=== PATIENT | male | born 1945 ===

== ENCOUNTER 2017-10-01 01:34 | Inpatient (IN) | payer MEDICARE, MEDICAID ==
[2017-10-01 01:43] VITALS: BMI 28.0
--- NOTE | 2017-10-01 02:08 | EDPD ---
HPI Stroke - General Time Seen by Provider: 10/01/17 01:44 Chief Complaint: Fever Historian: Patient, Family - History of Present Illness Narrative History of Present Illness (Free Text): 10/01/17 02:11 72 year old male, with past medical history of hypertension, CVA, cerebral hemorrhage, coronary thrombosis and A-fib, presents to the Emergency department complaining of slurred speech, dizziness, and worsening gait disturbance since approximately 4 hours prior to arrival. Patient recently arrived from [facility]. 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 Patient informs subjective warmth and informs chills however currently denies any chest pain, shortness of breath, nausea, vomiting, diarrhea , abdominal pain, headache, incontinence, or any other complaints. Onset:: Hours Timing: Currently Symptomatic Context: Home Associated Symptoms: Dysarthria - Location Location: Speech - Pain Assessment/Levels Maximum Severity: Mild rTPA Inclusion/Exclusion - Refusal of Treatment Patient Refused Treatment: No - Inclusion Criteria for Altepase Patient is 18 years or Older: Yes The Clinical Diagnosis of Ischemic Stroke That is Causing a Potentially Disabling Neurological Deficit: No Time of Onset is Well Established to be Less Than 270 Minute Before Treatment Would Begin: Yes Risk/Benefit Discussed With Patient/Family Member Present: Yes - Exclusion Criteria for Altepase Uncontrolled Hypertension at Time of Treatment (Systolic BP above 185 or Diastolic BP above 110 mmHg): No History of: Intracranial hemorrhage Active Internal Bleeding: No Known Bleeding Diathesis Including but Not Limited to: Platelets Below 100,000/ mm,PTT Above 40 sec After Heparin Use, Current Use of Oral Anitcoagulant With INR Greater Than 1.7 or PT Greater Than 15 secs: No Evidence of an Intracranial Hemorrhage: No Evidence of Major Acute Infarct With Signs Greater Than 1/3 MCA Territory: No Suspicion of Subarachnoid Hemorrhage on Pretreatment Evaluation Even if CT Head Negative For Hemorrhage: No - Warning to TPA With Conditions Following Conditions Weighed Against Anticipated Benefit: Yes Condition: Stroke Serevity Too Mild Additional Condition (For 3-4.5 Hour Window): Any anticoagulant use prior to admission (Even if INR less than 1.7) Past Medical History - Provider Review Nursing Documentation Reviewed: Yes Family/Social History - Family/Social History Family History: Non-Contributory Allergies/Home Meds Allergies/Adverse Reactions: Allergies No Known Allergies Allergy (Verified 10/01/17 01:43) Home Medications: Home Meds Medication Instructions Recorded Confirmed Acetaminophen [Tylenol] 500 mg PO DAILY 10/01/17 10/01/17 Carvedilol [Coreg] 12.5 mg PO BID 10/01/17 10/01/17 Hydrochlorothiazide [Microzide] 50 mg PO DAILY 10/01/17 10/01/17 Sertraline [Zoloft] 50 mg PO DAILY 10/01/17 10/01/17 amLODIPine [Norvasc] 10 mg PO DAILY 10/01/17 10/01/17 hydrALAZINE [Apresoline] 50 mg PO TID 10/01/17 10/01/17 levETIRAcetam [Keppra] 1,000 mg PO BID 10/01/17 10/01/17 Review of Systems - Review of Systems Constitutional: Normal Eyes: Normal ENT: Normal Respiratory: Normal Cardiovascular: Normal Gastrointestinal: Normal Genitourinary Male: Normal Musculoskeletal: Normal Skin: Normal Neurological: Dizziness, Speech Changes Endocrine: Normal Hemo/Lymphatic: Normal Psychiatric: Normal ED Stroke Physical Exam Vital Signs Reviewed: Yes Vital Signs Temp Pulse Resp BP Pulse Ox 10/01/17 01:43 98.1 F 93 H 18 138/94 H 93 L Temperature: Afebrile Blood Pressure: Normal Pulse: Regular Respiratory Rate: Normal Appearance: Positive for: Well-Appearing, Non-Toxic, Comfortable Pain Distress: None Mental Status: Positive for: Alert and Oriented X 3 - Systems Exam Head: Present: Atraumatic, Normocephalic Pupils: Present: PERRL Extroacular Muscles: Present: EOMI Conjunctiva: Present: Normal Ears: Present: NORMAL TM Mouth: Present: Moist Mucous Membranes Pharnyx: Present: Normal Nose (External): Present: Atraumatic Nose (Internal): Present: Normal Inspection Neck: Present: Normal Range of Motion Respiratory/Chest: Present: Clear to Auscultation, Good Air Exchange. No: Respiratory Distress, Accessory Muscle Use Cardiovascular: Present: Regular Rate and Rhythm, Normal S1, S2. No: Murmurs Abdomen: Present: Normal Bowel Sounds. No: Tenderness, Distention, Peritoneal Signs Upper Extremity: Present: Normal Inspection. No: Cyanosis, Edema Lower Extremity: Present: Normal Inspection, Normal ROM. No: Edema Neurologic: Present: GCS=15, CN II-XII Intact, Motor Func Grossly Intact, Normal Sensory Function Skin: Present: Warm, Dry, Normal Color. No: Rashes Psychiatric: Present: Alert, Oriented x 3, Normal Insight, Normal Concentration Medical Decision Making ED Course and Treatment: 10/01/17 02:07 Impression: 72 year old male presents to the Emergency department Differential Diagnosis included but are not limited to: CVA Plan: -- Blood Type and Screen -- CT of Head and Neck -- Labs -- Chest X-ray -- IV fluids -- EKG -- Reassess and disposition Progress Notes: 10/01/17 02:07 CODE STROKE ACTIVATED. 10/01/17 02:07 Dr. Page has been page, waiting on response. 10/01/17 02:46 Third call placed to Dr. Page. Still waiting on response. 10/01/17 02:20 CT of Head reviewed by radiologist, shows: FINDINGS: There is atrophy. There is chronic small vessel ischemic disease. On series 4, images 39- 41, there are faint hypoattenuating areas in the white matter of the left frontal lobe that may represent prominent areas of chronic small vessel ischemic disease however early developing edema secondary to acute infarct would be possible. Recommend sending prior studies if they exist. Recommend correlation with the patient's symptoms. MRI could be performed if indicated. There is encephalomalacia in the left cerebellum and medial left occipital lobe consistent with prior infarcts. There is no hemorrhage. No significant fluid in the sinuses. Decreased aeration and of the left mastoid air cells. The osseous structures are normal. 10/01/17 02:08 EKG:Ordered, reviewed, and independently interpreted the EKG. Rate : 92 BPM Rhythm : A-fib. Interpretation : LAD, non-specific ST/T wave changes. 10/01/17 03:04 Chest X-ray reviewed, shows no acute processes. 10/01/17 03:39 Dr. Page has been paged again. Still no response. 10/01/17 03:[address] Newell, who is aware and agrees with Emergency department management plan. Accepts patient under his service and as per request will page Dr. Blair. 10/01/17 04:[address] Page, who is aware and agrees with Emergency department management plan. Recommends continuance of anti-coagulant and admission to Telemetry followed by MRI in the morning. - Critical Care Critical Care Minutes: 30 minutes - RAD Interpretation French Weaver: ED Physician, Radiologist - EKG Interpretation Interpreted by ED Physician: Yes Type: 12 lead EKG - Scribe Statement The provider has reviewed the documentation as recorded by the Scribe Alejandro Paz. All medical record entries made by the Scribe were at my direction and personally dictated by me. I have reviewed the chart and agree that the record accurately reflects my personal performance of the history, physical exam, medical decision making, and the department course for this patient. I have also personally directed, reviewed, and agree with the discharge instructions and disposition. NIHSS Scale ([place]) Time Performed: 02:07 - How Severe is the Stoke Baseline Level of Consciousness: 0=Alert LOC to Questions: 0=Both comments correct LOC to commands: 0=Obeys both correctly Best Gaze: 0=Normal Visual: 0=No visual loss Facial: 0=Normal Motor Arm - Left: 0=No drift Motor Arm - Right: 0=No drift Motor Leg - Left: 0=No drift Motor Leg - Right: 0=No drift Limb Ataxia: 0=Absent Sensory: 0=Normal Best Language: 0=No aphasia Dysarthia: 1=Mild to moderate slurring Extinction & Inattention (Neglect): 0=Normal, no object Score: 1 Risk Level: Minor Stroke Risk Disposition/Present on Arrival - Present on Arrival Any Indicators Present on Arrival: No History of DVT/PE: Yes History of Uncontrolled Diabetes: No Urinary Catheter: No History of Decub. Ulcer: No History Surgical Site Infection Following: None - Disposition Have Diagnosis and Disposition been Completed?: Yes Diagnosis: CVA (cerebral vascular accident), Vertebral artery occlusion Disposition: HOSPITALIZED Disposition Time: 04:20 Patient Plan: Admission Patient Problems: Current Active Problems Problem Status Onset CVA (cerebral vascular accident) Acute Vertebral artery occlusion Acute Condition: STABLE
[2017-10-01 02:20] LABS: BASO # 0.03 K/mm3 (0.0-2.0); BASO % 0.3 % (0.0-3.0); EOS # 0.2 (0.0-0.7); EOS % 1.5 % (1.5-5.0); GRAN # 6.73 (1.4-6.5); GRAN % 61.5 % (50.0-68.0); LYMPH % 27.7 % (22.0-35.0); MEAN CELL VOLUME 91.6 fl (80.0-105.0); MEAN CORPUSCULAR HEMOGLOBIN 32.2 pg (25.0-35.0); MEAN CORPUSCULAR HGB CONC 35.1 g/dl (31.0-37.0); MEAN PLATELET VOLUME 9.9 fl (7.0-11.0); RBC 4.66 10^6/uL (3.5-6.1); RED CELL DISTRIBUTION WIDTH 13.3 % (11.5-14.5); WHITE BLOOD COUNT 10.9 10^3/ul (4.5-11.0)
[2017-10-01] MEDS ORDERED: Iohexol 350 MG/100 ML VIAL ONE (02:20)
[2017-10-01 02:29] LABS: ALB/GLOB RATIO 1.1 (1.1-1.8); ALBUMIN 3.8 g/dL (3.0-4.8); ALT/SGPT 18 U/L (7-56); AST/SGOT 23 U/L (17-59); BLOOD UREA NITROGEN 27 mg/dL (7-21); CALCIUM 8.8 mg/dL (8.4-10.5); GFR AFRICAN-AMERICAN > 60; GFR NON-AFRICAN AMERICAN > 60; HDL CHOLESTEROL 30 mg/dL (29-60)
[2017-10-01 02:40] LABS: LDL CHOLESTEROL 82 mg/dL (0-129)
--- NOTE | 2017-10-01 02:40 | CT ---
EXAM: CT Head Without Intravenous Contrast EXAM DATE/TIME: 10/01/2017 2:10 AM CLINICAL HISTORY: 72 years old, male; Signs and symptoms; Altered mental status/memory loss; Additional info: Code stroke TECHNIQUE: Axial computed tomography images of the head/brain without intravenous contrast. All CT scans at this facility use one or more dose reduction techniques, viz.: automated exposure control; ma/kV adjustment per patient size (including targeted exams where dose is matched to indication; i.e. head); or iterative reconstruction technique. Coronal and sagittal reformatted images were created and reviewed. COMPARISON: No relevant prior studies available. FINDINGS: There is atrophy. There is chronic small vessel ischemic disease. On series 4, images 39- 41, there are faint hypoattenuating areas in the white matter of the left frontal lobe that may represent prominent areas of chronic small vessel ischemic disease however early developing edema secondary to acute infarct would be possible. Recommend sending prior studies if they exist. Recommend correlation with the patient's symptoms. MRI could be performed if indicated. There is encephalomalacia in the left cerebellum and medial left occipital lobe consistent with prior infarcts. There is no hemorrhage. No significant fluid in the sinuses. Decreased aeration and of the left mastoid air cells. The osseous structures are normal. IMPRESSION: Encephalomalacia left cerebellum and medial left occipital lobe as with prior infarcts. Faint hypoattenuating areas in the white matter of the left frontal lobe that may represent prominent areas of chronic small vessel ischemic disease however early developing edema secondary to acute infarct would be possible. Recommend sending prior studies if they exist. Recommend correlation with the patient's symptoms. MRI could be performed if indicated.
[2017-10-01 02:43] LABS: TROPONIN I < 0.01 ng/mL
[2017-10-01 02:44] LABS: INR 2.68 (0.93-1.08); PARTIAL THROMBOPLASTIN TIME 39.1 Seconds (25.1-36.5); PROTHROMBIN TIME 31.2 SECONDS (9.4-12.5)
[2017-10-01] MEDS ORDERED: Potassium Chloride 20 mEq ER Tab PO STA (03:04)
[2017-10-01] MEDS: Sodium Chloride 0.9% 1,000 ML IV SCH ×3 (03:05→14:24)
--- NOTE | 2017-10-01 03:20 | CT ---
EXAM: CT Angiography Head With Intravenous Contrast CLINICAL HISTORY: 72 years old, male; Signs and symptoms; Speech disturbance; Type not specified; Additional info: Dizzy/dysarthria/hx. Cva/cerebral hemorhage TECHNIQUE: Axial computed tomographic angiography images of the head with intravenous contrast using CT angiography protocol. All CT scans at this facility use one or more dose reduction techniques, viz.: automated exposure control; ma/kV adjustment per patient size (including targeted exams where dose is matched to indication; i.e. head); or iterative reconstruction technique. MIP reconstructed images were created and reviewed. Coronal and sagittal reformatted images were created and reviewed. CONTRAST: 50 mL of OMNI 350 administered intravenously. COMPARISON: No relevant prior studies available. FINDINGS: The basilar artery is patent. The posterior cerebral arteries are patent. Calcifications are present in the internal carotid arteries without significant stenosis or occlusion. The anterior and middle cerebral arteries are patent. IMPRESSION: No acute vascular findings. EXAM: CT Angiography Neck With Intravenous Contrast EXAM DATE/TIME: 10/01/2017 2:10 AM CLINICAL HISTORY: 72 years old, male; Signs and symptoms; Speech disturbance; Type not specified; Additional info: Dizzy/dysarthria/hx. Cva/cerebral hemorhage TECHNIQUE: Axial computed tomographic angiography images of the neck with intravenous contrast using CT angiography protocol. All CT scans at this facility use one or more dose reduction techniques, viz.: automated exposure control; ma/kV adjustment per patient size (including targeted exams where dose is matched to indication; i.e. head); or iterative reconstruction technique. MIP reconstructed images were created and reviewed. Coronal and sagittal reformatted images were created and reviewed. CONTRAST: 50 mL of OMNI 350 administered intravenously. COMPARISON: CT - HEAD W/O (CODE STROKE) 2017-10-01 02:16 FINDINGS: There is calcification at the origin of the right vertebral artery. There is lack of contrast opacification of the entire right vertebral artery up to the level of the occipital condyles. The distal right vertebral artery is opacified to it's convergence with the left vertebral artery. The left vertebral artery is patent without stenosis or occlusion. The common carotid arteries are patent bilaterally without significant stenosis or occlusion. The visualized portions of the internal carotid arteries are patent without stenosis or occlusion. Small scattered calcifications are noted throughout the carotid arteries. Calcifications are present within the brachiocephalic artery bifurcation. IMPRESSION: Occlusion of the proximal-mid right vertebral artery with reconstitution distally at the level of the occipital condyles.
--- NOTE | 2017-10-01 08:32 | RAD ---
HISTORY: Code Stroke COMPARISON: No prior. FINDINGS: LUNGS: No active pulmonary disease. PLEURA: No significant pleural effusion identified, no pneumothorax apparent. CARDIOVASCULAR: Normal. OSSEOUS STRUCTURES: No significant abnormalities. VISUALIZED UPPER ABDOMEN: Normal. OTHER FINDINGS: None. IMPRESSION: No active disease.
--- NOTE | 2017-10-01 12:32 | MRI ---
PROCEDURE: MRI BRAIN WITHOUT CONTRAST HISTORY: r/o cva COMPARISON: None. TECHNIQUE: Multiplanar, multisequence MR images of the brain were obtained without intravenous contrast enhancement. FINDINGS: HEMORRHAGE: There is hemosiderin deposition in the left occipital lobe consistent with an old hemorrhagic infarct. DWI: No evidence of an acute or early subacute infarction. BRAIN PARENCHYMA: No mass effect or edema. Severe chronic microvascular changes are seen in the periventricular white matter. There is focal cystic encephalomalacia in the left occipital lobe. Old infarcts are also seen in the left cerebellar hemisphere. VENTRICLES: Unremarkable. No hydrocephalus. CRANIUM: Unremarkable. ORBITS: Grossly unremarkable. PARANASAL SINUSES/MASTOIDS: Clear VASCULAR SYSTEM: Skull base flow voids intact. OTHER FINDINGS: None. IMPRESSION: No acute intracranial findings. Chronic microvascular changes and chronic hemorrhagic infarct of the left occipital lobe
--- NOTE | 2017-10-01 12:34 | MRI ---
PROCEDURE: Magnetic Resonance Angiography Brain HISTORY: r/o cva COMPARISON: None available. TECHNIQUE: 3D time of flight MR angiography of the intracranial arteries was performed. Rotating maximum intensity projection images were generated. FINDINGS: INTERNAL CAROTID ARTERIES: Unremarkable. The skull base, petrous, cavernous and supraclinoid segments are bilaterally widely patient. ANTERIOR CEREBRAL ARTERIES: Unremarkable. A1 and A2 segments are widely patent. Smaller distal branches unremarkable, as visualized. MIDDLE CEREBRAL ARTERIES: Unremarkable. M1 and M2 segments are widely patent. Perisylvian branches grossly symmetric. POSTERIOR CIRCULATION: Basilar Artery: Unremarkable. Distal Vertebral Arteries: Unremarkable. Posterior Cerebral Arteries: Unremarkable. Posterior Inferior Cerebellar Arteries: Unremarkable. ANEURYSM/ VASCULAR MALFORMATIONS: None. OTHER FINDINGS: None. IMPRESSION: Unremarkable MR angiography of the brain.
--- NOTE | 2017-10-01 13:20 | CP.PCM.CON ---
History of Present Illness - History of Present Illness History of Present Illness: 72 yr old male who has pmh of HTN, old stroke, pmh of cerebral hemorrhage, who presented last night with 5 hour onset of dysarthria, presents to the Emergency department complaining of slurred speech, dizziness, and worsening gait disturbance. PER CHART: Patient recently arrived from [facility]. 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 PMH/PSH: afib on coumadin, prior hemorrhage and stroke, htn, FH/SH: lived in for 6 years, now lives in [facility]. No tobacco, no etoh, All: nkda on exam: Normal neurological examination, Past Patient History - Past Social History Smoking Status: Never Smoked - CARDIAC Hx Cardiac Disorders: Yes Hx Hypertension: Yes - PULMONARY Hx Respiratory Disorders: No - NEUROLOGICAL Hx Neurological Disorder: Yes HX Cerebrovascular Accident: Yes - HEENT Hx HEENT Problems: No - RENAL Hx Chronic Kidney Disease: No - ENDOCRINE/METABOLIC Hx Endocrine Disorders: No - HEMATOLOGICAL/ONCOLOGICAL Hx Blood Disorders: No - INTEGUMENTARY Hx Dermatological Problems: No - MUSCULOSKELETAL/RHEUMATOLOGICAL Hx Musculoskeletal Disorders: No Hx Falls: No - GASTROINTESTINAL Hx Gastrointestinal Disorders: No - GENITOURINARY/GYNECOLOGICAL Hx Genitourinary Disorders: No - PSYCHIATRIC Hx Psychophysiologic Disorder: No Hx Substance Use: No - SURGICAL HISTORY Hx Surgeries: Yes Other/Comment: left knee sx Meds Allergies/Adverse Reactions: Allergies Allergy/AdvReac Type Severity Reaction Status Date / Time No Known Allergies Allergy Verified 10/01/17 01:43 - Medications Medications: Current Medications Aspirin (Aspirin Chewable) 81 mg PO DAILY [facility] Last Admin: 10/01/17 09:38 Dose: 81 mg Sodium Chloride (Sodium Chloride 0.9%) 1,000 mls @ 100 mls/hr IV .Q10H [facility] Last Admin: 10/01/17 12:38 Dose: Not Given Results - Vital Signs Recent Vital Signs: Last Vital Signs Temp 98.0 F 10/01/17 06:19 Pulse 82 10/01/17 10:00 Resp 20 10/01/17 06:19 BP 131/88 10/01/17 06:19 Pulse Ox 96 10/01/17 05:05 - Labs Result Diagrams: 10/02/17 05:30 05/07/18 05:30 Labs: Laboratory Results - last 24 hr 10/01/17 10/01/17 10/01/17 06:30 06:30 06:30 POC Glucose (mg/dL) Vitamin B12 249 25-OH Vitamin D Total 15.5 L Digoxin < 0.4 L Blood Type Blood Type Confirm Antibody Screen BBK History Checked 10/01/17 10/01/17 10/01/17 08:20 08:49 12:49 POC Glucose (mg/dL) 144 H Vitamin B12 25-OH Vitamin D Total Digoxin Blood Type O POSITIVE Blood Type Confirm O POSITIVE Antibody Screen Negative BBK History Checked No verified bt - Imaging and Cardiology CT scan - head Status: Image reviewed by me, Report reviewed by me (CT HEAD SHOWS lt. cerebellar stroke, lt.occipital stroke old,) Additional comment: CTA head : shows proximal to mid right vertebral arteray with reconstitution at distal condyles. Assessment & Plan - Assessment and Plan (Free Text) Assessment: 72 yr old male with TIA, who was not candidate for TPA due to time of onset and partial resolution of symptoms. I ordered MRI Brain and it is normal at this time with no stroke. Plan: 1. Continue stroke workup. 2. ECHO 3. Restart coumadin for afib, 4, Lipid profile thank you dr. saleh
[2017-10-01] MEDS ORDERED: Nitroglycerin 2% Ointment Foilpak UD TOP PRN (13:42)
[2017-10-01] MEDS ORDERED: Potassium Chloride 20 mEq ER Tab PO ONE (13:43)
[2017-10-01] MEDS ORDERED: Ergocalciferol 50,000 Intl Units Cap PO SCH (13:45)
[2017-10-01] MEDS ORDERED: Enoxaparin 40 mg Syringe SC STA (14:09)
--- NOTE | 2017-10-01 15:14 | CARD ---
APPROVED REPORT EKG Measurement Heart [id number] <Conclusion> Atrial fibrillation Left axis deviation Abnormal ECG
--- NOTE | 2017-10-01 15:15 | CARD ---
APPROVED REPORT EKG Measurement Heart [id number] <Conclusion> Atrial fibrillation Left axis deviation Abnormal ECG
--- NOTE | 2017-10-01 22:58 | HP ---
DATE OF EXAM: 10/01/2017 HISTORY OF PRESENT ILLNESS: This is a 72-year-old male who was admitted to [facility]. He presented to the [facility] ER with complaint of dysarthria, slurred speech, dizziness, and worsening gait including imbalance with ambulation, which occurred approximately 4 hours prior to the arrival to the [facility] ER. There he was evaluated and felt to have evidence of possible stroke and is admitted for further evaluation of the above. PAST MEDICAL HISTORY: Extensive and includes chronic hypertension, old CVA, history of seizure syndrome, history of atherosclerotic heart disease with old myocardial infarction and chronic atrial fibrillation. Of note, the patient was on Coumadin anticoagulants for knowledge of atrial fibrillation in his past and in the emergency room, he was noted to have slurred speech and was complaining of dizziness. The patient has been seen by Neurology and is not felt to be an antithrombotic candidate, and review of current MRIs and CT shows no evidence of acute stroke or intracranial hemorrhage. ALLERGIES: THE PATIENT DENIES ANY ALLERGIES TO MEDICATION. FAMILY HISTORY: Noncontributory. OUTPATIENT MEDICATIONS: Included hydrochlorothiazide, Zoloft, heparin, Coumadin , Norvasc, hydralazine, and Coreg. SOCIAL HISTORY: He states he is a current nondrinker, nonsmoker. REVIEW OF SYSTEMS: CONSTITUTIONAL: Denied fever or chills. HEAD: Denied headache or recent seizure. EYES: No change in visual acuity. EARS: No hearing loss. THROAT: No swallowing difficulty. NECK: No stiffness. CARDIOVASCULAR: History of hypertension, atherosclerotic heart disease, old myocardial infarction, and AFib. PULMONARY: No cough. No hemoptysis. GI: No hematemesis. No melena. : No dysuria. No hematuria. SKIN: Without rash. VASCULAR: No claudication. PSYCHOLOGICAL: History of depression. NEUROLOGICAL: History of old stroke and seizure. PHYSICAL EXAMINATION; VITAL SIGNS: Temperature 98.1, respirations 18, pulse 93, blood pressure 138/94. HEENT: Head: Normocephalic, atraumatic. Eyes: No icterus. Ears: Clear. Throat: Noninjected. NECK: Supple. HEART: Irregular, S1 and S2. No pathological rubs, murmurs, or gallops. LUNGS: Clear to auscultation. ABDOMEN: Soft, nontender. No palpable organomegaly. No rebound, no guarding, no tenderness. EXTREMITIES: No clubbing, no cyanosis, no edema. SKIN: No rash. No ulceration. VASCULAR: No claudication. Legs warm to touch. PSYCHOLOGICAL: Alert. NEURO: Grossly intact. LABORATORY DATA: Sodium 145, K 3, chloride 103, bicarb 27. BUN 27, creatinine 1. Random blood sugar 165. Hemoglobin A1c 5.9. Bilirubin 0.4, AST 23, ALT 18, alk phos 118. Troponin less than 0.01. Cholesterol 137, triglycerides 185, LDL 82, HDL 30. B12 of 249. Vitamin D level low 15.5. White count 10,900, hemoglobin 15, hematocrit 42.7, platelets 232,000. PT/INR 2.68, PTT 39.1. Digoxin level less than 0.4. Chest x-ray was reviewed. It shows no active disease, no infiltrate, no CHF, no pleural effusion, no pneumothorax. Head CT was reviewed and showed encephalomalacia of the left cerebellum and medial left occipital load consistent with prior infarct. No acute hemorrhage was noted. Head and neck CTA was reviewed. There was calcification at the origin of the right vertebral artery with occlusion of the proximal mid right vertebral artery with reconstitution distally at the level of the occipital condyle. Head MRA was reviewed. It was unremarkable MR angiogram of the brain and brain MRI was reviewed. There is no evidence of acute or early subacute infarction. No acute intracranial findings were noted. IMPRESSION: A 72-year-old male with history of chronic atrial fibrillation with a therapeutic PT/INR consistent with outpatient Coumadin and comorbidities of chronic hypertension, vitamin D deficiency, stable atherosclerotic heart disease, history of old myocardial infarction, now with clinical evidence of cerebrovascular accident and vertebral artery occlusion, hypokalemia, hyperlipidemia, history of depression. Case was reviewed in detail with emergency room physician, Dr. Bella as well as neurologist, Dr. Page. PLAN: The plan will be to maintain this patient on the cardiac unit. He will continue on Zoloft 50 mg p.o. daily, 0.9 saline 50 mL/hour, Norvasc 10 mg p.o. daily, nitroglycerin 1 inch chest wall every 4 hours p.r.n. accelerated hypertension if systolic blood pressure should be greater than 160 or diastolic blood pressure greater than 100. Neurology will start him on Lovenox 40 mg subcu daily, Lipitor 10 mg p.o. daily. He will continue on Keppra 1000 mg p.o. b.i.d. as per his maintenance dosing at home for seizure prevention. I will order an additional 20 mEq of p.o. potassium at present, hydrochlorothiazide 25 mg daily, vitamin D2 50,000 units weekly, Coreg 12.5 mg p.o. b.i.d., and Ecotrin 81 mg p.o. daily. He is ordered to have a T4 level stat. a basic metabolic panel as well as CBC in a.m. As per Dr. Page, Neurology will continue to monitor this patient and decide on correct anticoagulation for him. He will continue on nasal O2 p.r.n. A 2D echocardiogram has been ordered, continues on a heart-healthy diet, and he will be started on Lipitor 10 mg p.o. at dinner time. All of the above was reviewed in detail with the patient, Nursing, Neurology. He continues on fall precaution. He has an order for swallowing eval, physical therapy for ambulation safety, and sequential anti-embolism stockings. Greater than 75 minutes was spent in the care management, review of labs, orders, x-rays, and discussion of this patient's care with Nursing, family at bedside and Neurology. All questions were answered. Irma Newell MD MTDD
[2017-10-02 06:25] LABS: HEMOGLOBIN 14.6 g/dL (14.0-18.0); MEAN CELL VOLUME 92.4 fl (80.0-105.0); MEAN CORPUSCULAR HEMOGLOBIN 31.8 pg (25.0-35.0); MEAN CORPUSCULAR HGB CONC 34.4 g/dl (31.0-37.0); MEAN PLATELET VOLUME 9.9 fl (7.0-11.0); RBC 4.59 10^6/uL (3.5-6.1); RED CELL DISTRIBUTION WIDTH 13.5 % (11.5-14.5); WHITE BLOOD COUNT 10.9 10^3/ul (4.5-11.0)
[2017-10-02 06:37] LABS: PROTHROMBIN TIME 21.8 SECONDS (9.4-12.5)
[2017-10-02 06:38] LABS: INR 1.87 (0.93-1.08)
[2017-10-02 07:30] LABS: BLOOD UREA NITROGEN 17 mg/dL (7-21); CALCIUM 8.4 mg/dL (8.4-10.5); GFR AFRICAN-AMERICAN > 60; GFR NON-AFRICAN AMERICAN > 60
--- NOTE | 2017-10-02 07:45 | CP.PCM.PN ---
<Joaquín Sharmaima - Last Filed: 10/02/17 18:26> Subjective - Date & Time of Evaluation Date of Evaluation: 10/02/17 Time of Evaluation: 08:15 - Subjective Subjective: PGY2 Neuro progress note for Dr. Blair Patient seen and examined at bedside. Nursing reports no acute events overnight. Denied acute complaints of headache, dizziness, chest pain, palpitations, SOB, cough, abd pain, nausea, vomiting, bowel/bladder complaints , pain/swelling in legs b/l. Patient complained of R sided dental caries pain and swelling. Objective - Vital Signs/Intake and Output Vital Signs (last 24 hours): Temp Pulse Resp BP Pulse Ox 99.1 F 90 20 136/72 96 10/02/17 06:00 10/02/17 06:00 10/02/17 06:00 10/02/17 06:51 10/02/17 06:00 Intake and Output: 10/02/17 10/02/17 06:59 18:59 Intake Total 577 Output Total 750 Balance -173 - Medications Medications: Current Medications Acetaminophen (Tylenol 325mg Tab) 650 mg PO Q6H PRN PRN Reason: Fever >100.4 F Acetaminophen (Tylenol 325mg Tab) 650 mg PO Q6H PRN PRN Reason: Pain, moderate (4-7) Last Admin: 10/02/17 05:23 Dose: 650 mg Amlodipine Besylate (Norvasc) 10 mg PO DAILY [facility] Aspirin (Aspirin Chewable) 81 mg PO DAILY [facility] Last Admin: 10/01/17 09:38 Dose: 81 mg Atorvastatin Calcium (Lipitor) 10 mg PO DIN [facility] Last Admin: 10/01/17 17:51 Dose: 10 mg Carvedilol (Coreg) 12.5 mg PO BID [facility] Last Admin: 10/01/17 17:51 Dose: 12.5 mg Enoxaparin Sodium (Lovenox) 40 mg SC DAILY [facility] PRN Reason: Protocol Ergocalciferol (Drisdol 50,000 Intl Units Cap) 1 cap PO Q7D [facility] Last Admin: 10/01/17 14:20 Dose: 1 cap Hydrochlorothiazide (Hydrodiuril) 25 mg PO DAILY [facility] Sodium Chloride (Sodium Chloride 0.9%) 1,000 mls @ 50 mls/hr IV .Q20H [facility] Last Admin: 10/01/17 14:24 Dose: 50 mls/hr Levetiracetam (Keppra) 1,000 mg PO BID [facility] Last Admin: 10/01/17 17:51 Dose: 1,000 mg Nitroglycerin (Nitro-Bid 2% Oint) 1 ea TOP Q4H PRN PRN Reason: accelerated hypertension Ondansetron HCl (Zofran Inj) 4 mg IVP Q6H PRN PRN Reason: Nausea/Vomiting Sertraline HCl (Zoloft) 50 mg PO DAILY [facility] Warfarin Sodium (Coumadin) 4 mg PO 1800 [facility] PRN Reason: Protocol Last Admin: 10/01/17 17:51 Dose: 4 mg - Labs Labs: 10/02/17 05:30 10/02/17 05:30 PT 21.8 SECONDS (9.4-12.5) H 10/02/17 05:30 INR 1.87 (0.93-1.08) H 10/02/17 05:30 APTT 39.1 Seconds (25.1-36.5) H 10/01/17 02:10 - Constitutional Appears: Non-toxic, No Acute Distress - Head Exam Head Exam: ATRAUMATIC, NORMAL INSPECTION, NORMOCEPHALIC - Eye Exam Eye Exam: EOMI. absent: Conjunctival injection, Scleral icterus Pupil Exam: PERRL - ENT Exam ENT Exam: Mucous Membranes Moist Additional comments: R sided facial swelling noted - Respiratory Exam Respiratory Exam: Clear to Ausculation Bilateral, NORMAL BREATHING PATTERN - Cardiovascular Exam Cardiovascular Exam: +S1, +S2 - GI/Abdominal Exam GI & Abdominal Exam: Soft, Normal Bowel Sounds - Neurological Exam Neurological Exam: Alert, Awake, CN II-XII Intact, Oriented x3 - Psychiatric Exam Psychiatric exam: Normal Affect, Normal Mood - Skin Skin Exam: Dry, Intact Assessment and Plan - Assessment and Plan (Free Text) Assessment: 72yo male hx of multiple CVAs presents with TIA Plan: -recommend coumadin titration for therapeutic INR -recommend antibiotics for dental caries -recomment patient drink 3L water daily -f/u Echo -Head CT: encephalomalacia L cerebellum and medial L occipital lobe consistent with prior infarcts. Faint hypoattenuating areas in white matter of left frontal lobe represents prominent chronic small vessel ischemic disease. -Head/Neck CTA: occlusion proximal mid R vertebral A with reconstitution distally at level of occipital condyles -Brain MRI: no acute changes; chronic microvascular change and chronic infarct L occipital lobe -Head MRA: no acute changes -recomment pt/ot -continue current management as per primary Discussed with Dr. Rossy Shamra PGY2 <Vicente Blair - Last Filed: 10/02/17 21:18> Objective - Vital Signs/Intake and Output Vital Signs (last 24 hours): Temp Pulse Resp BP Pulse Ox 98.2 F 83 18 113/81 96 10/02/17 18:00 10/02/17 19:10 10/02/17 18:00 10/02/17 19:10 10/02/17 06:00 - Medications Medications: Current Medications Acetaminophen (Tylenol 325mg Tab) 650 mg PO Q6H PRN PRN Reason: Fever >100.4 F Acetaminophen (Tylenol 325mg Tab) 650 mg PO Q6H PRN PRN Reason: Pain, moderate (4-7) Last Admin: 10/02/17 11:39 Dose: 650 mg Amlodipine Besylate (Norvasc) 10 mg PO DAILY [facility] Last Admin: 10/02/17 11:07 Dose: 10 mg Aspirin (Aspirin Chewable) 81 mg PO DAILY [facility] Last Admin: 10/02/17 11:07 Dose: 81 mg Atorvastatin Calcium (Lipitor) 10 mg PO DIN [facility] Last Admin: 10/02/17 19:10 Dose: 10 mg Carvedilol (Coreg) 12.5 mg PO BID [facility] Last Admin: 10/02/17 19:10 Dose: 12.5 mg Enoxaparin Sodium (Lovenox) 40 mg SC DAILY [facility] PRN Reason: Protocol Last Admin: 10/02/17 15:32 Dose: 40 mg Ergocalciferol (Drisdol 50,000 Intl Units Cap) 1 cap PO Q7D [facility] Last Admin: 10/01/17 14:20 Dose: 1 cap Hydrochlorothiazide (Hydrodiuril) 25 mg PO DAILY [facility] Last Admin: 10/02/17 11:07 Dose: 25 mg Sodium Chloride (Sodium Chloride 0.9%) 1,000 mls @ 50 mls/hr IV .Q20H [facility] Last Admin: 10/02/17 11:08 Dose: 50 mls/hr Levetiracetam (Keppra) 1,000 mg PO BID [facility] Last Admin: 10/02/17 19:10 Dose: 1,000 mg Nitroglycerin (Nitro-Bid 2% Oint) 1 ea TOP Q4H PRN PRN Reason: accelerated hypertension Ondansetron HCl (Zofran Inj) 4 mg IVP Q6H PRN PRN Reason: Nausea/Vomiting Sertraline HCl (Zoloft) 50 mg PO DAILY [facility] Last Admin: 10/02/17 11:07 Dose: 50 mg Warfarin Sodium (Coumadin) 4 mg PO 1800 [facility] PRN Reason: Protocol Last Admin: 10/02/17 19:11 Dose: 4 mg - Labs Labs: 10/02/17 05:30 10/02/17 05:30 PT 21.8 SECONDS (9.4-12.5) H 10/02/17 05:30 INR 1.87 (0.93-1.08) H 10/02/17 05:30 APTT 39.1 Seconds (25.1-36.5) H 10/01/17 02:10 Attending/Attestation - Attestation I have personally seen and examined this patient.: Yes I have fully participated in the care of the patient.: Yes I have reviewed all pertinent clinical information, including history, physical exam and plan: Yes
[2017-10-02] MEDS: Sodium Chloride 0.9% 1,000 ML IV SCH (11:08)
[2017-10-02] MEDS ORDERED: Enoxaparin 40 mg Syringe SC SCH (13:32)
--- NOTE | 2017-10-02 20:27 | CON ---
DATE: 10/02/2017 INDICATIONS: Atrial fibrillation, rule out stroke. HISTORY OF PRESENT ILLNESS: This is a 72-year-old man admitted through the emergency room yesterday when he presented with multiple symptoms including slurring of speech, gait worsening, headache, dizziness. His symptoms have resolved and he appears to have a TIA versus a new stroke. He has a complex past medical history with a prior hemorrhagic stroke with residual gait abnormality and weakness. He is in chronic atrial fibrillation, on Coumadin. He has a history of hypertension, seizure disorder, and coronary artery disease. This morning, he feels better. His speech has normalized. There is no dizziness, chest pain, shortness of breath, orthopnea, PND, syncope, palpitation, edema, claudication, fever, chills, cough, sputum production, hemoptysis, abdominal pain, nausea, vomiting, diarrhea, constipation, or melena. MEDICATIONS: At the time of admission include Tylenol, Coreg, hydrochlorothiazide, Zoloft, Norvasc, hydralazine, and Keppra. ALLERGIES: NO MEDICATION ALLERGIES ARE REPORTED. SOCIAL HISTORY: He lives at home. He just came here from [facility]. He is ambulatory, but limited. He does not smoke cigarettes. He does not drink alcohol significantly. FAMILY HISTORY: Noncontributory. REVIEW OF SYSTEMS: A 10-point review of systems otherwise unremarkable except as noted above. PHYSICAL EXAMINATION: GENERAL: He is a well-developed male, in no acute distress, resting in bed on telemetry. VITAL SIGNS: Unremarkable. He is in atrial fibrillation at 80 to 90 beats per minute. He is afebrile. Blood pressure 136/72, respirations 20 to 21, O2 sat 94% to 96% on room air. HEENT: Reveals no neck vein distention, thyromegaly, or carotid bruits. Mucous membranes are moist. Conjunctivae are pink. NECK: Supple. LUNGS: Lung jackson are clear. HEART: Reveals an irregular rhythm. Normal first and second heart sounds. ABDOMEN: Soft. Bowel sounds present. No mass, organomegaly, tenderness, rebound, or guarding. EXTREMITIES: Reveal no cyanosis, clubbing, or edema. NEUROLOGICAL: He was awake and alert. PSYCHIATRIC: Normal as to mood and affect. SKIN: Warm and dry. No rash or cellulitis. LABORATORY AND IMAGING: Chest x-ray reveals no active disease. EKG demonstrates atrial fibrillation, moderate ventricular response, poor R-wave progression, left axis deviation, nonspecific ST-wave changes, no change from a previous EKG. CT of the head, CTA of the head and neck, brain MRI, head MRA are all noted. CBC is unremarkable. PT 21.8, INR 1.87. Electrolytes normal. BUN and creatinine unremarkable. Blood sugar is noted. Troponin less than 0.01. Cholesterol 137, LDL 82, HDL 30, triglycerides 185. Digoxin less than 0.4. IMPRESSION: Speedy Coronel is a 72-year-old man who presented with neurologic symptoms with a course suggestive of transient ischemic attack versus stroke. He is undergoing neurologic evaluation. He is in chronic atrial fibrillation. He is on Coumadin. He came in with a therapeutic INR of 2.68. I will order an echocardiogram. We will monitor INRs. He is having a neurologic evaluation. He is currently getting Coreg, aspirin, warfarin, hydrochlorothiazide, Keppra, Lipitor, Lovenox, nitro paste, amlodipine, sertraline. Since his INR is near therapeutic, I would discontinue the Lovenox. I will follow along with you. I will make additional recommendations based on his clinical course. Baljeet Cano MD MTDD
--- NOTE | 2017-10-02 22:54 | PN ---
DATE: 10/02/2017 SUBJECTIVE: This 72-year-old male remains hospitalized with altered mental status, rule out stroke in the setting of presentation with slurred speech and dysarthria being followed by Neurology and consultation pending with Dr. Cano from Cardiology for chronic atrial fibrillation and need for 2-D echocardiogram. Of note, the patient remains in atrial fibrillation on the security monitor and according to family was taking chronic Coumadin 4 mg p.o. daily with a therapeutic PT/INR on admission. Review of CAT scan and brain MRI showed no evidence of an acute stroke. However, the patient was noted on head and neck CTA to have an occlusion in the proximal mid right vertebral artery at the level of the occipital condyle. He is being followed daily by Neurology and no further interventions have been recommended by them at this time. PHYSICAL EXAMINATION VITAL SIGNS: Temperature is 98.4, respirations 18, pulse 94, blood pressure 121/87. pvc monitor shows atrial fibrillation. HEAD: Normocephalic, atraumatic. Eyes, no icterus. NECK: Supple. HEART: Irregular S1, S2. LUNGS: Clear. ABDOMEN: Soft. EXTREMITIES: No edema. SKIN: Without rash. NEUROLOGICAL: Grossly intact. PSYCHOLOGICAL: Alert. VASCULAR: Legs warm to touch. LABORATORY DATA: PT/INR 1.87. Sodium 144, K 3.6, chloride 107, bicarb 27, BUN 17, creatinine 0.8, random blood sugar 124. Calcium 8.4, vitamin D level was low at 15.5. B12 of 249 normal. Cholesterol 137, triglycerides 185, LDL 82, HDL 30. All liver function testing was normal including bilirubin 0.4, AST 23, ALT 18, alk phos 118. Troponin was less than 0.01. White count 10,900, hemoglobin 14.6, hematocrit 42.4, platelets 221,000. IMPRESSION: This is a 72-year-old male admitted with transient ischemic attack like symptoms in the absence of obvious stroke on CT or MRI with comorbidities of chronic hypertension, chronic atrial fibrillation on Coumadin, vitamin D deficiency, history of old stroke and encephalomalacia of the brain on chronic Keppra for seizure prevention, hyperlipidemia and chronic depression. PLAN: At present is to continue patient on cardiac unit while continuing speech pathology as well as physical and occupational therapy. The patient is wearing antiembolism sequential compression device stockings. He is ordered to have stool for occult blood. He remains on high fall risk protocol. He is ordered to have a 2-D echocardiogram. He is ordered to have nasal O2 p.r.n. He will continue on Zoloft 50 mg p.o. daily, 0.9 saline at 50 mL/hour, Norvasc 10 mg p.o. daily, nitroglycerin 1 inch to chest wall every 4 hours p.r.n. accelerated hypertension if systolic blood pressure is greater than 168 or diastolic blood pressure is greater than 100. He continues on Lipitor 10 mg p.o. daily, Keppra 1000 mg p.o. b.i.d., hydrochlorothiazide 25 mg p.o. daily, Drisdol 50,000 IU weekly on Monday, Coumadin 4 mg p.o. daily, Coreg 12.5 mg p.o. b.i.d., Ecotrin 81 mg p.o. daily and the patient is ordered to have a repeat INR and basic metabolic panel in the a.m. After completion of workup by Neurology and Cardiology, the patient's disposition will be decided. All of the above has been reviewed in detail with nursing and co-consultants. Greater than 35 minutes was spent in the care management, review of labs, orders, x-rays and outlining of medication and workup for this patient today. All questions were answered. Irma Newell MD MTDCarri
[2017-10-03 06:31] LABS: BLOOD UREA NITROGEN 17 mg/dL (7-21); CALCIUM 8.5 mg/dL (8.4-10.5); GFR AFRICAN-AMERICAN > 60; GFR NON-AFRICAN AMERICAN > 60
[2017-10-03 06:34] LABS: INR 1.84 (0.93-1.08); PROTHROMBIN TIME 21.4 SECONDS (9.4-12.5)
--- NOTE | 2017-10-03 07:56 | CP.PCM.PN ---
Subjective - Date & Time of Evaluation Date of Evaluation: 10/03/17 Time of Evaluation: 07:56 - Subjective Subjective: PGY2 Neuro progress note for Dr. Blair Patient seen and examined at bedside. Nursing reports no acute events overnight. Patient denied acute complaints of headache, dizziness, chest pain, palpitations, SOB, cough, abd pain, nausea, vomiting, bowel/bladder complaints, pain/swelling in legs b/l. Patient continues to have R sided dental pain and swelling but has no trouble eating/swallowing. Patient reports he has no trouble ambulating to the bathroom and back. Objective - Vital Signs/Intake and Output Vital Signs (last 24 hours): Temp Pulse Resp BP Pulse Ox 98 F 83 18 128/67 97 10/03/17 00:01 10/03/17 02:00 10/03/17 00:01 10/03/17 00:01 10/03/17 00:01 Intake and Output: 10/03/17 10/03/17 06:59 18:59 Intake Total 480 Output Total 1750 Balance -1270 - Medications Medications: Current Medications Acetaminophen (Tylenol 325mg Tab) 650 mg PO Q6H PRN PRN Reason: Fever >100.4 F Acetaminophen (Tylenol 325mg Tab) 650 mg PO Q6H PRN PRN Reason: Pain, moderate (4-7) Last Admin: 10/02/17 11:39 Dose: 650 mg Amlodipine Besylate (Norvasc) 10 mg PO DAILY [facility] Last Admin: 10/02/17 11:07 Dose: 10 mg Aspirin (Aspirin Chewable) 81 mg PO DAILY [facility] Last Admin: 10/02/17 11:07 Dose: 81 mg Atorvastatin Calcium (Lipitor) 10 mg PO DIN [facility] Last Admin: 10/02/17 19:10 Dose: 10 mg Carvedilol (Coreg) 12.5 mg PO BID [facility] Last Admin: 10/02/17 19:10 Dose: 12.5 mg Enoxaparin Sodium (Lovenox) 40 mg SC DAILY [facility] PRN Reason: Protocol Last Admin: 10/02/17 15:32 Dose: 40 mg Ergocalciferol (Drisdol 50,000 Intl Units Cap) 1 cap PO Q7D [facility] Last Admin: 10/01/17 14:20 Dose: 1 cap Hydrochlorothiazide (Hydrodiuril) 25 mg PO DAILY [facility] Last Admin: 10/02/17 11:07 Dose: 25 mg Sodium Chloride (Sodium Chloride 0.9%) 1,000 mls @ 50 mls/hr IV .Q20H [facility] Last Admin: 10/02/17 11:08 Dose: 50 mls/hr Levetiracetam (Keppra) 1,000 mg PO BID [facility] Last Admin: 10/02/17 19:10 Dose: 1,000 mg Nitroglycerin (Nitro-Bid 2% Oint) 1 ea TOP Q4H PRN PRN Reason: accelerated hypertension Ondansetron HCl (Zofran Inj) 4 mg IVP Q6H PRN PRN Reason: Nausea/Vomiting Sertraline HCl (Zoloft) 50 mg PO DAILY [facility] Last Admin: 10/02/17 11:07 Dose: 50 mg Warfarin Sodium (Coumadin) 4 mg PO 1800 [facility] PRN Reason: Protocol Last Admin: 10/02/17 19:11 Dose: 4 mg - Labs Labs: 10/02/17 05:30 10/03/17 05:30 PT 21.4 SECONDS (9.4-12.5) H 10/03/17 05:30 INR 1.84 (0.93-1.08) H 10/03/17 05:30 APTT 39.1 Seconds (25.1-36.5) H 10/01/17 02:10 - Constitutional Appears: Non-toxic, No Acute Distress - Head Exam Head Exam: ATRAUMATIC, NORMAL INSPECTION, NORMOCEPHALIC - Eye Exam Eye Exam: EOMI, Normal appearance, PERRL. absent: Conjunctival injection, Scleral icterus Pupil Exam: NORMAL ACCOMODATION - ENT Exam ENT Exam: Mucous Membranes Moist Additional comments: R sided facial swelling noted - Respiratory Exam Respiratory Exam: NORMAL BREATHING PATTERN. absent: Respiratory Distress - Cardiovascular Exam Cardiovascular Exam: +S1, +S2. absent: Bradycardia, Tachycardia - GI/Abdominal Exam GI & Abdominal Exam: Soft. absent: Tenderness - Extremities Exam Extremities Exam: Normal Capillary Refill, Normal Inspection. absent: Pedal Edema - Neurological Exam Neurological Exam: Alert, Awake, CN II-XII Intact, Oriented x3 - Psychiatric Exam Psychiatric exam: Normal Affect, Normal Mood - Skin Skin Exam: Dry, Intact, Normal Color, Warm Assessment and Plan - Assessment and Plan (Free Text) Assessment: 72yo male hx of multiple CVAs presents with TIA Plan: -recommend coumadin titration for therapeutic INR- 5mg today -recommend antibiotics for dental caries -recomment patient drink 3L water daily -f/u Echo -Head CT: encephalomalacia L cerebellum and medial L occipital lobe consistent with prior infarcts. Faint hypoattenuating areas in white matter of left frontal lobe represents prominent chronic small vessel ischemic disease. -Head/Neck CTA: occlusion proximal mid R vertebral A with reconstitution distally at level of occipital condyles -Brain MRI: no acute changes; chronic microvascular change and chronic infarct L occipital lobe -Head MRA: no acute changes -recomment pt/ot -continue current management as per primary Discussed with Dr. Rossy Sharma PGY2
--- NOTE | 2017-10-03 08:25 | CP.PCM.PN ---
Subjective - Date & Time of Evaluation Date of Evaluation: 10/03/17 Time of Evaluation: 07:00 - Subjective Subjective: Stable on 2R. No CP or SOB. V/S noted. AF. PE: Lungs: clear Cor.: S1S2 Abd.: soft Ext.: no edema Neuro.: alert I/O = 480/1750 Labs noted: INR = 1.84 Objective - Vital Signs/Intake and Output Vital Signs (last 24 hours): Temp Pulse Resp BP Pulse Ox 98.5 F 87 20 130/82 96 10/03/17 06:00 10/03/17 06:00 10/03/17 06:00 10/03/17 06:00 10/03/17 06:00 Intake and Output: 10/03/17 10/03/17 06:59 18:59 Intake Total 600 480 Output Total 1750 Balance 600 -1270 - Medications Medications: Current Medications Acetaminophen (Tylenol 325mg Tab) 650 mg PO Q6H PRN PRN Reason: Fever >100.4 F Acetaminophen (Tylenol 325mg Tab) 650 mg PO Q6H PRN PRN Reason: Pain, moderate (4-7) Last Admin: 10/02/17 11:39 Dose: 650 mg Amlodipine Besylate (Norvasc) 10 mg PO DAILY [facility] Last Admin: 10/02/17 11:07 Dose: 10 mg Aspirin (Aspirin Chewable) 81 mg PO DAILY [facility] Last Admin: 10/02/17 11:07 Dose: 81 mg Atorvastatin Calcium (Lipitor) 10 mg PO DIN [facility] Last Admin: 10/02/17 19:10 Dose: 10 mg Carvedilol (Coreg) 12.5 mg PO BID [facility] Last Admin: 10/02/17 19:10 Dose: 12.5 mg Ergocalciferol (Drisdol 50,000 Intl Units Cap) 1 cap PO Q7D [facility] Last Admin: 10/01/17 14:20 Dose: 1 cap Hydrochlorothiazide (Hydrodiuril) 25 mg PO DAILY [facility] Last Admin: 10/02/17 11:07 Dose: 25 mg Sodium Chloride (Sodium Chloride 0.9%) 1,000 mls @ 50 mls/hr IV .Q20H [facility] Last Admin: 10/02/17 11:08 Dose: 50 mls/hr Levetiracetam (Keppra) 1,000 mg PO BID [facility] Last Admin: 10/02/17 19:10 Dose: 1,000 mg Nitroglycerin (Nitro-Bid 2% Oint) 1 ea TOP Q4H PRN PRN Reason: accelerated hypertension Ondansetron HCl (Zofran Inj) 4 mg IVP Q6H PRN PRN Reason: Nausea/Vomiting Sertraline HCl (Zoloft) 50 mg PO DAILY [facility] Last Admin: 10/02/17 11:07 Dose: 50 mg Warfarin Sodium (Coumadin) 4 mg PO 1800 [facility] PRN Reason: Protocol Last Admin: 10/02/17 19:11 Dose: 4 mg - Labs Labs: 10/02/17 05:30 10/03/17 05:30 PT 21.4 SECONDS (9.4-12.5) H 10/03/17 05:30 INR 1.84 (0.93-1.08) H 10/03/17 05:30 APTT 39.1 Seconds (25.1-36.5) H 10/01/17 02:10 Assessment and Plan - Assessment and Plan (Free Text) Assessment: TIA vs. Stroke: Slurred speech, Abn. gait, VENEGAS, Dizziness Old stroke Chronic AF on warfarin HBP Seizure Disorder CAD Dental carries Plan: Check echo when done As per Neuro., Dr. Newell Warfarin 5 mg. today. Monitor INRs OOB/PT
[2017-10-03] MEDS: Sodium Chloride 0.9% 1,000 ML IV SCH (09:57)
[2017-10-04 01:58] VITALS: O2SAT 96
[2017-10-04] MEDS: Sodium Chloride 0.9% 1,000 ML IV SCH (05:33)
[2017-10-04 06:46] LABS: BLOOD UREA NITROGEN 18 mg/dL (7-21); CALCIUM 8.6 mg/dL (8.4-10.5); GFR AFRICAN-AMERICAN > 60; GFR NON-AFRICAN AMERICAN > 60
[2017-10-04 06:47] LABS: INR 1.89 (0.93-1.08)
--- NOTE | 2017-10-04 07:09 | CP.PCM.PN ---
Subjective - Date & Time of Evaluation Date of Evaluation: 10/04/17 Time of Evaluation: 10:26 - Subjective Subjective: PGY2 Neuro progress note for Dr. Blair Patient seen and examined at bedside. Nursing reports no acute events overnight and patient is for discharge this AM. Patient denied acute complaints of headache, dizziness, chest pain, palpitations, SOB, cough, abd pain, nausea, vomiting, bowel/bladder complaints, pain/swelling in legs b/l. Patient is eating well and ambulating. He is eager to go home today. Objective - Vital Signs/Intake and Output Vital Signs (last 24 hours): Temp Pulse Resp BP Pulse Ox 98.6 F 72 18 127/90 96 10/04/17 00:01 10/04/17 00:01 10/04/17 00:01 10/04/17 00:01 10/04/17 00:01 Intake and Output: 10/04/17 10/04/17 06:59 18:59 Intake Total 600 120 Output Total 1000 Balance -400 120 - Medications Medications: Current Medications Acetaminophen (Tylenol 325mg Tab) 650 mg PO Q6H PRN PRN Reason: Fever >100.4 F Acetaminophen (Tylenol 325mg Tab) 650 mg PO Q6H PRN PRN Reason: Pain, moderate (4-7) Last Admin: 10/02/17 11:39 Dose: 650 mg Amlodipine Besylate (Norvasc) 10 mg PO DAILY [facility] Last Admin: 10/03/17 09:50 Dose: 10 mg Aspirin (Aspirin Chewable) 81 mg PO DAILY [facility] Last Admin: 10/03/17 10:04 Dose: 81 mg Atorvastatin Calcium (Lipitor) 10 mg PO DIN [facility] Last Admin: 10/03/17 18:01 Dose: 10 mg Carvedilol (Coreg) 12.5 mg PO BID [facility] Last Admin: 10/03/17 18:01 Dose: 12.5 mg Ergocalciferol (Drisdol 50,000 Intl Units Cap) 1 cap PO Q7D [facility] Last Admin: 10/01/17 14:20 Dose: 1 cap Hydrochlorothiazide (Hydrodiuril) 25 mg PO DAILY [facility] Last Admin: 10/03/17 09:49 Dose: 25 mg Sodium Chloride (Sodium Chloride 0.9%) 1,000 mls @ 50 mls/hr IV .Q20H [facility] Last Admin: 10/04/17 05:33 Dose: 50 mls/hr Levetiracetam (Keppra) 1,000 mg PO BID [facility] Last Admin: 10/03/17 18:01 Dose: 1,000 mg Nitroglycerin (Nitro-Bid 2% Oint) 1 ea TOP Q4H PRN PRN Reason: accelerated hypertension Ondansetron HCl (Zofran Inj) 4 mg IVP Q6H PRN PRN Reason: Nausea/Vomiting Sertraline HCl (Zoloft) 50 mg PO DAILY [facility] Last Admin: 10/03/17 09:49 Dose: 50 mg Warfarin Sodium (Coumadin) 4 mg PO 1800 [facility] PRN Reason: Protocol Last Admin: 10/02/17 19:11 Dose: 4 mg - Labs Labs: 10/02/17 05:30 10/04/17 06:00 PT 22.0 SECONDS (9.4-12.5) H 10/04/17 06:00 INR 1.89 (0.93-1.08) H 10/04/17 06:00 APTT 39.1 Seconds (25.1-36.5) H 10/01/17 02:10 - Constitutional Appears: Non-toxic, No Acute Distress - Head Exam Head Exam: ATRAUMATIC, NORMAL INSPECTION, NORMOCEPHALIC - Eye Exam Eye Exam: Normal appearance, PERRL. absent: Conjunctival injection, Scleral icterus - ENT Exam ENT Exam: Mucous Membranes Moist - Respiratory Exam Respiratory Exam: NORMAL BREATHING PATTERN. absent: Respiratory Distress - Cardiovascular Exam Cardiovascular Exam: +S1, +S2 - GI/Abdominal Exam GI & Abdominal Exam: Soft. absent: Tenderness - Neurological Exam Neurological Exam: Alert, Awake, CN II-XII Intact, Oriented x3 - Psychiatric Exam Psychiatric exam: Normal Affect, Normal Mood - Skin Skin Exam: Dry, Intact, Normal Color, Warm Assessment and Plan - Assessment and Plan (Free Text) Assessment: 72yo male hx of multiple CVAs presents with TIA Plan: -recommend coumadin titration for therapeutic INR -recommend antibiotics for dental caries -recomment patient drink 3L water daily -Echo: bilateral atrial enlargement, moderate concentric LVH, normal LV size and systolic function, moderate TR, mild TR -Head CT: encephalomalacia L cerebellum and medial L occipital lobe consistent with prior infarcts. Faint hypoattenuating areas in white matter of left frontal lobe represents prominent chronic small vessel ischemic disease. -Head/Neck CTA: occlusion proximal mid R vertebral A with reconstitution distally at level of occipital condyles -Brain MRI: no acute changes; chronic microvascular change and chronic infarct L occipital lobe -Head MRA: no acute changes -recomment PT after discharge Discussed with Dr. Rossy Sharma PGY2
--- NOTE | 2017-10-04 07:44 | CARD ---
APPROVED REPORT EXAM: Two-dimensional and M-mode echocardiogram with Doppler and color Doppler. INDICATION CVA/TIA 2D DIMENSIONS Left Atrium (2D)4.7 (1.6-4.0cm)IVSd1.3 (0.7-1.1cm) LVDd3.3 (3.9-5.9cm)PWd1.5 (0.7-1.1cm) LVDs2.4 (2.5-4.0cm)FS (%) 27.7 % LVEF (%)55.1 (>50%) M-Mode DIMENSIONS Aortic Root3.20 (2.2-3.7cm)Aortic Cusp Exc.1.50 (1.5-2.0cm) Aortic Valve AoV Peak Bybngciv291.0cm/Cecilia Peak GR.8mmHg Mitral Valve MV E Xatrmdfm31.7cm/sMV A Oddlzfnq05.8cm/sE/A ratio1.8 TDI E/Lateral E'0.0E/Medial E'0.0 Pulmonary Valve PV Peak Mxeollzr00.4cm/sPV Peak Grad.2mmHg Tricuspid Valve TR Peak [id number]/sRAP [id number] Peak Gr.41mmHg [id number] LEFT VENTRICLE The left ventricle is normal size. There is moderate concentric left ventricular hypertrophy. The left ventricular function is normal. The left ventricular ejection fraction is within the normal range. There is normal LV segmental wall motion. RIGHT VENTRICLE The right ventricle is normal size. The right ventricular systolic function is normal. ATRIA The left atrium is moderately dilated. The right atrium is moderately dilated. The interatrial septum is intact with no evidence for an atrial septal defect. AORTIC VALVE The aortic valve is moderately sclerotic. No aortic regurgitation is present. There is no aortic valvular stenosis. MITRAL VALVE Mitral annular calcification is moderate. Mitral regurgitation is mild. There is no mitral valve stenosis. TRICUSPID VALVE The tricuspid valve is normal in structure. There is moderate tricuspid regurgitation. PULMONIC VALVE The pulmonary valve is normal in structure. GREAT VESSELS The aortic root is normal in size. The IVC is normal in size and collapses >50% with inspiration. PERICARDIAL EFFUSION There is no pleural effusion. There is no pericardial effusion. <Conclusion> Biatrial enlargement. Moderate concentric LVH. Normal LV size and systolic function. Moderate TR. Mild MR.
--- NOTE | 2017-10-04 08:14 | PN ---
DATE: 10/03/2017 SUBJECTIVE: This 72-year-old male was examined at his bedside in the presence of his nurse, Nses Cruz, registered nurse. The patient's family members were at the bedside as well. The case was also reviewed in detail with Dr. Cano from Cardiology. The patient was admitted with dysarthria, slurred speech and is in the process of having a workup for TIA versus stroke. Of note, brain and neck CTA show a vertebral artery occlusion, however, head CT and MRI failed to show any evidence of brain infarct or hemorrhage. The patient is back to his baseline, he is fully aware of his surroundings. He is fluent in speech and showing no signs of motor weakness. He did have an echocardiogram completed earlier today which will be reviewed by Dr. Cano and at present denies any fever, chills, chest pain or shortness of breath and remains in a chronic atrial fibrillation rhythm on the cardiac care unit nurse. Of note, the patient was admitted with a therapeutic PT/INR of 2.68 which on morning testing was 1.84 on his chronic Coumadin 4 mg treatment. As a result after discussion with Dr. Cano his Coumadin will be increased to 5 mg this evening with a repeat PT/INR for the a.m. PHYSICAL EXAMINATION GENERAL: phototypesetting equipment monitor shows atrial fibrillation. VITAL SIGNS: Temperature 98.1, respirations 18, pulse 87 and blood pressure 112/77 with a pulse ox of 96%. HEENT: Head: Normocephalic, atraumatic. Eyes: No icterus. Ears: Clear. Throat: Noninjected. NECK: Supple. HEART: Irregular S1, S2. No pathological rubs, murmurs or gallops. LUNGS: Clear. ABDOMEN: Soft. EXTREMITIES: No edema. SKIN: Without rash. NEUROLOGICAL: Unchanged. PSYCHOLOGICAL: Alert. VASCULAR: Legs warm to touch. LABORATORY DATA: PT/INR 1.84. PT/INR on admission 2.68. White count 10,900, hemoglobin 14.6, hematocrit 42.4, platelets 221,000. Sodium 143, K 3.8, chloride 106, bicarb 26, BUN 17, creatinine 0.8, random blood sugar 113, calcium 8.5. IMPRESSION: This 72-year-old male with transient ischemic attack versus stroke with brain MRI and CT showing no infarct or hemorrhage, but neck CTA showing vertebral artery occlusion in a gentleman with comorbidities of chronic atrial fibrillation on outpatient Coumadin, chronic hypertension, stable atherosclerotic heart disease, history of vitamin D deficiency, history of seizure syndrome, hyperlipidemia, anxiety, depression and degenerative arthritis. PLAN: The plan is discussed with the patient and family at bedside will be to continue Zoloft 50 mg p.o. daily, Zofran 4 mg IV every 6 hours p.r.n. nausea, vomiting, Tylenol 650 p.o. every 6 hours. p.r.n. pain or temperature greater than 101, Norvasc 10 mg p.o. daily, nitroglycerin 1 inch to chest wall every 4 hours p.r.n. accelerated hypertension if systolic blood pressure is greater than 160 or diastolic blood pressure is greater than 100. He continues on Lipitor 10 mg p.o. at dinner time, Keppra 1000 mg p.o. b.i.d. while maintaining seizure precautions, hydrochlorothiazide 25 mg p.o. daily, Drisdol 50,000 IU weekly on Monday, Coreg 12.5 mg p.o. b.i.d., Ecotrin 81 mg p.o. daily and Coumadin 5 mg p.o. tonight. The patient is scheduled for basic metabolic panel and PT/INR in a.m. He continues on a heart-healthy soft bland diet and is wearing sequential antiembolism stockings and receiving physical and occupational therapy for reconditioning, gait training and staircase safety. As discussed with nurse, the patient, family at bedside and Dr. Cano based on his clinical response labs in the morning and echocardiogram results, he will be readied for discharge with outpatient follow up with myself and Dr. Blair, Neurologist and Dr. Baljeet Cano from Cardiology. The patient's family at bedside are in agreement with the above. All questions were answered. Greater than 35 minutes was spent in the care, review of labs, x-rays, orders and discussion of this patient's workup with Dr. Cano from Cardiology, nursing and family. All questions were answered. Irma Newell MD [facility] # [id number] MTDD
[2017-10-04 09:22] VITALS: BP 141/98; PULSE 79
[2017-10-04 09:33] VITALS: RESP 20; TEMP 98.1
--- NOTE | 2017-10-04 13:32 | PN ---
DATE: 10/04/2017 SUBJECTIVE: The patient is seen lying in bed on 3R. Currently comfortable. He denies any recurrent dizziness. His vital signs have been stable. CURRENT MEDICATIONS: Include aspirin, carvedilol 12.5 mg b.i.d., warfarin, hydrochlorothiazide 25 mg daily, Keppra 1000 mg b.i.d., Lipitor 10 mg daily, topical nitrates, Norvasc 10 mg daily and Zoloft 50 mg daily. OBJECTIVE: GENERAL: He is a middle-aged man, appears comfortable at rest. VITAL SIGNS: His blood pressure is 120/70 with the pulse of 80, respirations 16. He is afebrile. HEENT: No JVD. CHEST: Few scattered rhonchi. HEART: PMI normal position. No pathological murmur or gallops noted. ABDOMEN: Soft, nontender, normoactive bowel sounds. EXTREMITIES: No edema. DIAGNOSTIC DATA: Potassium 3.6, BUN and creatinine 18 and 0.9. INR is 1.89. IMPRESSION: 1. Recent transient ischemic attack with slurred speech and dizziness, clinically improved. 2. Chronic atrial fibrillation maintained on warfarin. INR today is mildly subtherapeutic. 3. Remote cerebrovascular accident. 4. History of seizure disorder. RECOMMENDATION: From a cardiac standpoint, he appears stable for discharge home at this time. Maintenance of an INR between 2.5 and 3 would likely be a preferable in the setting. Close monitoring of this as an outpatient is advised. If he has any recurrent neurologic episodes, aspirin can be added to this regimen. Bernardino Chun MD MTDD
--- NOTE | 2017-10-04 22:15 | DS ---
DATE OF EVALUATION: 10/04/2017 FINAL DIAGNOSES: Altered mental status, transient ischemic attack, history of old stroke, history of chronic atrial fibrillation, history of seizure syndrome, chronic hypertension, anxiety, depression. DISPOSITION: Home with family. FOLLOWUP: Follow up in my office, 10/09/2017. Follow up with Dr. Baljeet Cano, Cardiology. DISCHARGE DIET: 2 g sodium, heart-healthy. DISCHARGE MEDICATIONS: Keppra 1000 mg b.i.d., Norvasc 10 mg daily, hydralazine 50 mg p.o. t.i.d., Zoloft 50 mg daily, Microzide 50 mg p.o. daily, Coreg 12.5 mg b.i.d. and Coumadin 5 mg p.o. daily. Patient will need outpatient INR on 10/09/2017 at my medical office. SUMMARY: This 72-year-old male was admitted to the [facility] with slurred speech and dysarthria and was ruled out for acute stroke after being evaluated by Dr. Page from Neurology. Patient underwent head CT, brain MRI and head MRA, which showed no evidence of acute stroke or occlusion; however, a neck CTA did show an occlusion of his mid right vertebral artery with reconstitution distally at the level of the occipital condyle. Patient has a history of previous stroke and encephalomalacia and is on chronic Keppra for seizure prevention. For completeness sake, he was seen by Cardiology and underwent an echocardiogram, this was reviewed. It showed biatrial enlargement, moderate concentric left ventricular hypertrophy, normal left ventricular size and systolic function and moderate tricuspid regurgitation. The patient was seen in consultation by Physical Therapy and was deemed safe for ambulation safety and staircase safety. At the time of discharge, temperature was 98.1, respirations 20, pulse 79, blood pressure 127/90 with pulse ox 96% room air. White count 10,900, hemoglobin 14.6, hematocrit 92.4, platelets 221,000. PT/INR 1.89. Coumadin was recently increased to 5 mg p.o. at bedtime. His chemistry, sodium 143, K 3.6, chloride 106, bicarb 27, BUN 18, creatinine 0.9, random blood sugar 96 and calcium 8.6. The patient is discharged to home to the care of his family. He will be monitored closely as an outpatient in my office and with Dr. Baljeet Cano from Cardiology. He is wearing antiembolism stockings during the day, to be removed at bedtime and will have medication adjusted further based on his clinical progress as an outpatient. All of the above was discussed in detail with patient, family and nursing. All questions were answered. Irma Newell MD MTDD
== END 2017-10-04 10:10 | disposition home or self-care (01) | DRG 69 ==
LOC: ED 01:34 → ERH 04:23 → 2RNO 05:19 → 3RNO 10-03 14:41
PROVIDERS: ADMIT Internal Medicine; ATTEND Internal Medicine
DX: G45.9 Transient cerebral ischemic attack, unspecified (principal); R47.81 Slurred speech; R47.1 Dysarthria and anarthria; I10 Essential (primary) hypertension; E55.9 Vitamin D deficiency, unspecified; E87.6 Hypokalemia; G40.909 Epilepsy, unspecified, not intractable, without status epilepticus; I48.2 Chronic atrial fibrillation; I25.10 Atherosclerotic heart disease of native coronary artery without angina pectoris; F32.9 Major depressive disorder, single episode, unspecified; F41.9 Anxiety disorder, unspecified; E78.5 Hyperlipidemia, unspecified; M19.90 Unspecified osteoarthritis, unspecified site; I07.1 Rheumatic tricuspid insufficiency; K02.9 Dental caries, unspecified; R26.9 Unspecified abnormalities of gait and mobility; G93.89 Other specified disorders of brain; I69.398 Other sequelae of cerebral infarction; I25.2 Old myocardial infarction; Z79.01 Long term (current) use of anticoagulants